=== PATIENT | male | born 1970 | race African-American/Black ===

== ENCOUNTER → 2024-07-24 06:39 | Outpatient (REF) | payer BC, SELFPAY | LOC: HWRAD 06:39 | PROVIDERS: ATTENDING PHYSICIAN Family Medicine | DX: R10.11 Right upper quadrant pain (principal) | CPT/HCPCS: 76700 ==

== ENCOUNTER → 2024-08-01 07:41 | Outpatient (REF) | payer BC, SELFPAY | LOC: RCS 07:41 | PROVIDERS: ATTENDING PHYSICIAN Family Medicine | DX: R07.9 Chest pain, unspecified (principal); E78.2 Mixed hyperlipidemia; I10 Essential (primary) hypertension | CPT/HCPCS: 93017 ==

== ENCOUNTER 2024-10-12 16:52 | Emergency (ER) | payer BC, SELFPAY ==
[2024-10-12 17:04] VITALS: BP 149/80
[2024-10-12 17:20] LABS: Hematocrit 38.6 % (39.0-52.0); Hemoglobin 13.4 g/dL (13.0-18.0); Mean Corp Hgb Conc. 34.7 g/dL (33.0-37.0); Mean Corpuscular Volume 89.8 fL (80.0-94.0); Nucleated Red Blood Cells % 0 % (-); Platelet Count 210 10^3/uL (130-400); Red Cell Dist. Width 12.3 % (11.5-14.5)
[2024-10-12 17:35] LABS: ALT (SGPT) 50 U/L (0-50); AST (SGOT) 34 U/L (17-59); Albumin 4.6 g/dl (3.5-5.0); Alkaline Phosphatase 51 U/L (38-126); Blood Urea Nitrogen 15 mg/dl (9-20); Calcium 9.5 mg/dl (8.4-10.2); Carbon Dioxide 25 mmol/L (22-30); Chloride 105 mmol/L (98-107); Glucose 110 mg/dl (70-99); Potassium 4.2 mmol/L (3.5-5.1); Sodium 136 mmol/L (135-145); Total Protein 7.4 g/dl (6.3-8.2); eGFR > 60.00
--- NOTE | 2024-10-12 18:36 | ED.GENMED ---
History of Present Illness
General
Chief Complaint: Skin Problem
Time Seen by Provider: 10/12/24 18:20
History of Present Illness
History of Present Illness:
53-year-old male with history of hypertension and hyperlipidemia presents the emergency department for evaluation of progressively worsening swelling and discomfort to the tip of the left middle finger for the past week. He was seen 2 days ago at
[facility] and started on Augmentin however symptoms are progressing. No fevers or chills. Denies trauma to the area.
Past History
Past History
ED Past Medical History: Hyperthyroidism (Treated); Negative HTN, Hypercholesterolemia, IDDM or NIDDM
Social History
Tobacco: Non-smoker
Drug: None
Personal:
Living: with family
Employment: Employed
Family History
Family History: Other
Review of Systems
Review of Systems
Allergies reviewed?: Yes
All Other Systems: ROS reviewed and negative except as documented in HPI and ROS
Phy Exam
Physical Exam
Physical Exam:
GEN: Well appearing, NAD, WDWN
HEENT: Oral mucosa moist, no scleral icterus
Cardiac: Regular rate
Lung: No respiratory distress, no tachypnea
MSK: Diffuse swelling to the left middle finger distal aspect/nailbed with obvious purulence at the cuticle, there is no tenderness or crepitus to the finger pad, there is no diffuse digital edema, range of motion at the PIP and DIP joints is normal
Skin: Good color, no pallor or jaundice, no rashes
Neuro: AO x3, moves all extremities freely
Psych: Calm, cooperative
Course
Orders/Labs/Results
Orders:
Orders
10/12/24 17:11
Complete Blood Count/With Diff Urgent
Comprehensive Metabolic Panel Urgent
10/12/24 19:06
Wound Culture [Wound/Abscess/Other Culture] Urgent
GENIE Source: Finger
Specimen Description: Left
Date Specimen was Collected: 10/12/24
Time Specimen was Collected: 19:04
Abnormal Lab Results
10/12/24
17:11
RBC 4.30 L 10^6/uL
(4.70-6.10)
Hct 38.6 L %
(39.0-52.0)
MCH 31.2 H pg
(27.0-31.0)
MPV 10.6 H fL
(7.4-10.4)
Glucose 110 H mg/dl
(70-99)
10/12/24 17:11
10/12/24 17:11
Vital Signs
Initial and Last Documented VS:
Initial Vital Signs
Temp Pulse Resp BP Pulse Ox
97.8 F 56 16 149/80 98
10/12/24 17:04 10/12/24 17:04 10/12/24 17:04 10/12/24 17:04 10/12/24 17:04
Last Documented Vital Signs
Temp Pulse Resp BP Pulse Ox
97.8 F 56 16 149/80 98
10/12/24 17:04 10/12/24 17:04 10/12/24 17:04 10/12/24 17:04 10/12/24 18:37
Procedures
Incision/Drainage/Joint Aspiration
L middle finger:
Anethesia: 1% Lidocaine
Preparation: cleaned with alcohol wipe
Type of procedure: incise and drain
Nature of site: other (paronychia)
How much fluid was obtained?: small amount
Fluid description: purulent
Treatment: bandaid applied
MDM/Problems Addressed
MDM/Problems Addressed:
Bedside I&D performed with good results, culture sent for completeness as the patient is already on antibiotics. He has no signs of sepsis and reportedly had an x-ray performed at [place] 2 days ago that was unremarkable. Discussed need for salt
water soaks recommend return to the emergency department if symptoms worsen or fever develop
*Pulse Oximetry
SaO2: 98
Oxygen Mode of Delivery: Room air
Patient hypoxic: no
*Critical Care Note
Total Time (30-74mins, 75-104mins- exclusive of procedures): Not Applicable
ED Attending Note
-
Portions of this chart may have been created with voice recognition software.� Occasional wrong word or��sound alike� substitutions may have occurred due to the inherent limitations of voice recognition software.
Discharge Plan
Departure
Patient Disposition: Home (Routine Discharge)
Date of Disposition: 10/12/24
Time of Disposition: 18:56
Patient with high blood pressure during this ER visit?: No
Discharge Problem:
Paronychia
Instructions: Paronychia - ED (DC)
Prescriptions:
No Action
levothyroxine 150 MCG tablet
150 mcg PO DAILY AT 0700
hydrochlorothiazide 25 MG tablet
25 mg PO DAILY Qty: 30 0RF
albuterol sulfate 1 PUFF HFA aerosol inhaler
2 puff inhalation R Q4HPRN PRN (Reason: wheezing/SOB) Qty: 1 0RF
amlodipine 5 mg Tablet
5 mg PO DAILY
atorvastatin 40 MG tablet
40 mg PO QPM
hydralazine 25 MG tablet
25 mg PO TID PRN (Reason: HYPERTENSION/TAKES OCCASIONALLY)
pantoprazole 40 MG tablet,delayed release (DR/EC)
40 mg PO DAILY PRN (Reason: GI ISSUES)
tamsulosin [Flomax] 0.4 mg Capsule
0.4 mg PO DAILY
ciprofloxacin HCl 250 mg tablet
250 mg PO BID 5 Days Qty: 10 0RF
phenazopyridine 200 mg tablet
200 mg PO BID 3 Days Qty: 6 0RF
Referrals:
Genaro Dykes MD [Family Provider, Family Practice]
Activity Restrictions/Additional Instructions:
Continue your antibiotics, we will call you if culture results warrant change in medication
Warm salt water soaks will improve swelling
Interventions
Interventions:
*Risk Screen - Suicide Last Done: 10/12/24 17:04
*Neglect/Abuse Screening Last Done: 10/12/24 17:04
*Nursing Disposition Last Done: 10/12/24 19:10
ED-Skin Assessment Last Done: 10/12/24 18:23
Discharge Date and Time
Discharge Date/Time: 10/12/24 19:10
Print Language: ROMANSH
== END 2024-10-12 19:10 | disposition home or self-care (01) ==
LOC: EMR 16:52
PROVIDERS: Emergency Medicine; EMERGENCY PHYSICIAN Emergency Medicine; FAMILY PHYSICIAN Family Medicine
DX: L03.012 Cellulitis of left finger (principal)
CPT/HCPCS: 99283; 10060; 80053; 85025; 87070; 87147; 87186; 87205